=== PATIENT | female | born 1985 | race Hispanic/Latino ===

== ENCOUNTER 2016-05-14 14:31 | Emergency (ER) | payer OTHER ==
[2016-05-14 15:01] VITALS: BMI 28.3
[2016-05-14] MEDS ORDERED: Lactated Ringer's 1,000 ML IV SCH ×2 (15:30→16:30)
[2016-05-14 16:21] LABS: BASO % 0.3 % (0.0-2.0); EOS % 0.3 % (0.0-4.0); HEMATOCRIT 37.6 % (34.0-47.0); LYMPH # 1.8 K/uL (1.0-4.3); LYMPH % 15.5 % (20.0-40.0); MEAN CORPUSCULAR HEMOGLOBIN 30.5 pg (27.0-31.0); MEAN CORPUSCULAR HGB CONC 33.2 g/dL (33.0-37.0); MEAN PLATELET VOLUME 10.1 fl (7.2-11.7); MONO # 0.5 K/uL (0.0-0.8); NEUT # 9.3 K/uL (1.8-7.0); NEUT % 79.9 % (50.0-75.0); RED CELL DISTRIBUTION WIDTH 13.8 % (11.5-14.5); WHITE BLOOD COUNT 11.6 K/uL (4.8-10.8)
[2016-05-14 16:37] LABS: ALKALINE PHOSPHATASE 62 U/L (38-126); ALT/SGPT 25 U/L (9-52); AST/SGOT 39 U/L (14-36); BILIRUBIN,TOTAL 0.6 mg/dl (0.2-1.3); BLOOD UREA NITROGEN 8 mg/dl (7-17); CARBON DIOXIDE 21 mmol/L (22-30); CHLORIDE 105 mmol/L (98-107); GFR AFRICAN-AMERICAN > 60; GLUCOSE,RANDOM 68 mg/dL (65-105); SODIUM 138 mmol/l (132-148)
--- NOTE | 2016-05-14 17:10 | OBHP ---
Datetime: 05/14/2016 15:23 IP Adm Impression: , intrauterine IP Admit Plan: Observation/Evaluation Admit Comment, IP Provider: 30 y/o at 26w3d, DAVY: 08/17/16 based on her LMP and first trimester s creening US at 8 weeks who presents complaining of vaginal bleeding that she noticed 20 minutes ago w dafne she was getting in to a cab carrying heavy bags. Patient states that the gush of blood was assoc iated with small clots, and intermittent sporadic abdomianl cramps. Denies uterine contractions, but is unsure about leakage of fluids. Denies nausea, vomiting, or other complains. Reports good mo vements. Patient reports a history of placenta previa in current , but we do not have her re cords and previous ultrasounds. PMHx: Denies OBHx: , Placenta previa Allergies: NKDA SHx: Appendectomy Social: denies smoking, etoh, and recreational drugs meds: [facility] doctor: Luca Henderson MD O: Inspection: scant dark blood in distal vagina. A: 30 y/o with IUP at 26w3d, placenta previa with vaginal bleeding and intermittent abdominal cramps. Plan:Observation Continues external monitor Patient seen and examined with Dr. Cornell. Joan Díaz PGY1 OBH ADDENDUM: Agree with above assessment. Pt d/w Dr Wilde, who advised calling pt's ob prior to transferrin g to [facility]. Called Dr. Luca Henderson, pt's doctor who [place] [facility] [place]. Wilde of pt's physician's preference. Spoke with Dr. Powers, pt accepted for transfer. Pt advised of transfer and indications. Pelvic Type - PN: Adequate Extremities - PN: Normal Abdomen - PN: Normal Lungs - PN: Normal Heart - PN: Normal Thyroid - PN: Normal Neurologic - PN: Normal General - PN: Normal Presentation-Admit: Vertex FHR - Baseline A Provider: 130 Contraction Comments Provider: none EGA AdmitDate IP: 26.3 Vital Signs Provider: Reviewed; Within Normal Limits (Annotations: Data stored by CPN on behalf of user) IP Chief Complaint: Vaginal bleeding NICHD Variability Prov Fetus A: Moderate 6-25bpm NICHD Accel Fetus A IP Provider: 10X10 FHR Category Provider Fetus A: Category I NICHD Decel Fetus A IP Provider: None
== END 2016-05-14 23:00 | disposition short-term general hospital (02) ==
LOC: H.EROB2 14:31
DX: O44.02 Complete placenta previa NOS or without hemorrhage, second trimester (principal); O46.90 Antepartum hemorrhage, unspecified, unspecified trimester; Z3A.26 26 weeks gestation of pregnancy